=== PATIENT | male | born 2000 | race Caucasian/White ===

== ENCOUNTER 2020-12-11 11:19 | Day surgery (SDC) | payer OTHER ==
[~2020-12-11] VITALS: Ht 180.3 cm; Wt 85.2 kg
[~2020-12-11 11:19] MED LIST: LIDOCAINE 2% 100MG/5ML SDV (FOR ANES.) As Ordered ONE; LR 1,000 ML IV ONE; MIDAZOLAM INJ 2MG/2ML VIAL (J2250 PER 1MG) As Ordered ONE; ONDANSETRON 4MG/2ML VIAL As Ordered ONE; ROCURONIUM BROMIDE 50 MG/5 ML VIAL As Ordered ONE; SUGAMMADEX SODIUM 500 MG/5 ML VIAL (BRIDION) As Ordered ONE; ceFAZolin SOD 2 GM in IV 1 EA IV ONE; dexameTHASONE 4 MG/ML 1ML VIAL (J1100 PER 1MG) As Ordered ONE; fentaNYL 250 MCG/5 ML INJECTION (J3010) As Ordered ONE; propofoL 200 MG/20 ML VIAL As Ordered ONE
[2020-12-11] MEDS ORDERED: BUPIVACAINE HCL 0.25% 30ML VIAL As Ordered ONE (13:19)
[2020-12-11] MEDS ORDERED: ACETAMINOPHEN 1000MG 100ML IV BTL (OFIRMEV) (J0131 PER 10MG) As Ordered ONE (14:14)
[2020-12-11] MEDS ORDERED: ePHEDrine SULFATE 25 MG/5 ML(5MG/ML) SYRINGE As Ordered ONE (14:20)
[2020-12-11] MEDS ORDERED: PHENYLephrine 500MCG 5ML (100MCG/ML) SYRINGE As Ordered ONE (14:20)
[2020-12-11] MEDS ORDERED: VANCOMYCIN 1000MG/20ML VIAL As Ordered ONE (15:42)
[2020-12-11] MEDS ORDERED: hydrALAZINE 20MG/ML 1ML VIAL (J0360 PER 20MG) As Ordered ONE (16:01)
[2020-12-11] MEDS ORDERED: fentaNYL 100 MCG/2 ML INJECTION (J3010) As Ordered ONE (16:47)
[2020-12-11] MEDS ORDERED: oxyCODONE 5MG TAB PO PRN (17:15)
[2020-12-11] MEDS ORDERED: fentaNYL 100 MCG/2 ML INJECTION (J3010) IV PRN (17:15)
[2020-12-11] MEDS ORDERED: ONDANSETRON 4MG/2ML VIAL IV PRN (17:15)
[2020-12-11] MEDS ORDERED: LR 1,000 ML IV SCH (17:15)
--- NOTE | 2020-12-11 18:17 | RO ---
OPERATIVE NOTE DATE OF OPERATION: 12/11/2020 TIME: 2 p.m. PREOPERATIVE DIAGNOSIS: Right distal fibular ankle fracture with disrupted syndesmosis. POSTOPERATIVE DIAGNOSIS: Right distal fibular ankle fracture with disrupted syndesmosis. NAME OF OPERATION: Right ankle open reduction and internal fixation with syndesmotic fixation. SURGEON: Doron Vila MD CIGAR P[employer]ER AND SHADER: None. SUPERVISING ATTENDING: Doron Vila MD FINDINGS: The patient had a distal fibular displaced fracture with syndesmotic disruption. INDICATIONS: This was a 20-year-old male who sustained the aforementioned injury while twisting his right ankle during a ground-level fall five days prior. The patient presented to the [facility] at [place] and was indicated for the aforementioned surgery for his unstable Escalante B ankle fracture and syndesmotic disruption. ANESTHESIA: GETA. TOURNIQUET TIME: 108 minutes. ESTIMATED BLOOD LOSS: 30 mL. IV FLUIDS: Please see anesthesia report. IV ANTIBIOTICS: Please see anesthesia report. IMPLANTS: Synthes and Arthrex. CULTURES: None. SPECIMENS: None. DESCRIPTION OF PROCEDURE: The patient was met in the preoperative holding area where the patient's operative extremity was signed, the patient's consent was confirmed to be correct, and the patient's identity was confirmed to be correct. The patient was then transported to the operating theater where he was placed on a regular surgical flat-top bed in the supine position with a radiolucent foot extension. A safety strap secured the patient to the bed. All bony prominences were well padded. The contralateral lower extremity had an SCD placed. A timeout was called which confirmed the correct patient, correct operative extremity and correct consent. All staff were in agreement. The patient was then draped in the usual sterile fashion. We then obtained fluoroscopic imaging to anika out the fracture site and to anika the skin incisions for a distal fibula approach which would be a lateral approach approximately 4 inches in length. We then inflated the tourniquet to 250 mmHg. I incised the skin sharply and maintained meticulous hemostasis. We protected the superficial peroneal nerve throughout the remainder of the case. I then used a scalpel in order to make my way to the distal fibular fracture. I incised the periosteum overlying the fracture and this was elevated to expose the fracture. I used a scalpel, hemostat and normal saline to clean the fracture. Once the fracture was clean and mobilized, I was able to reduce it provisionally using a [id number] bone reducing clamp. I then used lag by technique in order to place two 2.7 mm cortical screws across the fracture site in order to obtain an absolute compression. I then placed a 5-hole distal fibular locking plate into position to protect the lag screw fixation. This was secured using thin wires and then I secured it distally with a cortical screw followed by three locking screws. I secured it proximally using three 3.5 mm cortical screws in order to provide rotational stability at the fracture site. I then replaced the distal cortical screw with a 2.7 locking screw. At this point in time, I stress the syndesmosis using a dorsiflexion external rotation and appreciated diastasis at the syndesmosis. I then elected to proceed with syndesmotic fixation. We elected to use the Arthrex TightRope suspensory fixation device and placed a thin K-wire across the syndesmosis approximately 1 cm proximal to the tibiotalar joint line which was tetracortical in nature, crossing both the fibula and tibia. Once this guidewire was placed and obtained an AP and lateral view to ensure I was satisfied with the implant placement, I then overdrilled this thin K-wire using a 4.0 cannulated drill bit from the Arthrex syndesmosis kit. This was then removed as well as a thin K-wire. I placed the TightRope suspension into place, deployed the button on the medial aspect of the tibial cortex and then tightened this in position over a 4-0 washer over the plate in order to provide distributed forced dissipation. This was tensioned manually. I then cut the sutures flush with the end of the TightRope. At this point in time, I obtained final fluoroscopic imaging to include a mortise and mortise stress view of dorsiflexion, external rotation, a lateral view and an AP view. I was satisfied with both the implant placement and the fracture reduction as well as the syndesmosis repair. I copiously irrigated the surgical site using three liters of normal saline. I placed one gram of vancomycin powder over the distal fibular plat, closed the periosteum using 0 Vicryl over the plate and then closed the dermal layer using 2-0 Vicryl, closed the skin using 3-0 nylon in running fashion, placed Xeroform over the patient's surgical sie followed by Deyanira. The patient's right ankle was placed in a well-padded L&U splint. The patient was then extubated without complication and transported to the postanesthesia care unit. The patient will follow the right ankle open reduction and internal fixation rehabilitative protocol. He was given postoperative medication as preoperative appointment. He will follow up in two weeks for a postoperative wound check and transition from L&U splint to cam boot. He will be educated of the aforementioned findings at his two week postoperative visit. The patient will go home.
[2020-12-11 18:30] VITALS: BP 144/70
--- NOTE | 2020-12-13 08:41 | REP ---
INDICATION: FX ANKLE. COMPARISON: None. TECHNIQUE: Fifteen fluoroscopic spot views were obtained during ORIF. 94.6 seconds fluoroscopy time was provided. FINDINGS: Internal fixation plate and screws are identified. The mortise is intact. IMPRESSION: As above. <Electronically signed by Amaury Rosario > 12/13/20 [id number]
== END 2020-12-11 18:30 | disposition home or self-care (01) ==
LOC: M SDC 11:19
PROVIDERS: ATTEND Orthopaedic Surgery
DX: S82.61XA Displaced fracture of lateral malleolus of right fibula, initial encounter for closed fracture (principal); S93.431A Sprain of tibiofibular ligament of right ankle, initial encounter; X50.1XXA Overexertion from prolonged static or awkward postures, initial encounter; Y92.89 Other specified places as the place of occurrence of the external cause; Y93.89 Activity, other specified; Y99.8 Other external cause status; F17.210 Nicotine dependence, cigarettes, uncomplicated
CPT/HCPCS: 27792; 27829; 76000; C1713; J0131; J0360; J0690; J1100; J2250; J2370; J2405; J3010; J3370